=== PATIENT | male | born 1970 | race Caucasian/White ===

== ENCOUNTER 2023-09-24 11:34 | Emergency (ER) | payer OTHER ==
--- NOTE | 2023-09-24 13:10 | RAD REPORT ---
EXAM DESCRIPTION: CT - Spine Lumbar Wo Con - 09/24/2023 12:12 pm CLINICAL HISTORY: prior surgeries;Lower back pain;Radiculopathy COMPARISON: No comparisons TECHNIQUE: Axial noncontrast CT imaging of the lumbar spine was performed with coronal and sagittal re-formatted images. All CT scans are performed using dose optimization technique as appropriate and may include automated exposure control or mA/KV adjustment according to patient size. FINDINGS: No acute lumbar spine fracture seen. No aggressive marrow pattern or malalignment. Sequel ae of posterior approach fusion at L4-5, with sequelae of posterior decompression at the level. Inter body spacer at L5-S1 with L5 anterior fusion screw as well. Variable degrees of facet ankylosis at th ose levels Paraspinal tissues are normal in thickness. No paraspinal abscess or hematoma seen. Intervertebral disc disease assessment is inherently limited by CT. Within these limitations, no high -grade canal stenosis suspected. Mild degrees of bony neural foraminal narrowing due to facet and en dplate remodeling at L3-4, L4-5, and L5-S1, most pronounced at L5-S1 bilaterally. IMPRESSION: No acute fracture or subluxation. Sequelae of posterior decompression and fusion of the lower lumbar spine as above. Please consider MRI follow-up for assessment of disc disease if clinically desired.
[2023-09-24] MEDS ORDERED: HYDROCODONE/APAP 7.5/325 MG TAB ONE (14:08)
[2023-09-24] MEDS ORDERED: KETOROLAC 30 MG/ML INJ ONE (14:08)
[2023-09-24] MEDS ORDERED: dexAMETHasone 10 MG/ML VIAL ONE (14:08)
[2023-09-24] MEDS ORDERED: ONDANSETRON 4 MG (ODT) TAB ONE (14:49)
[2023-09-24] MEDS ORDERED: MORPHINE 4 MG/ML SYR ONE (14:50)
[2023-09-24] MEDS ORDERED: LIDOCAINE 4% PATCH ONE (14:50)
--- NOTE | 2023-09-24 15:22 | ER ---
Nurse's Notes [facility] Name: Cristhian Hanson Age: 53 yrs Sex: Male : 1970 Arrival Date: 09/24/2023 Time: 11:34 Bed 12 Private MD: Diagnosis: Strain of muscle, fascia and tendon of lower back Presentation: 09/23 11:55 Chief complaint: Patient states: low back pain x 4 days, hx of chronic back pain. jl7 Coronavirus screen: At this time, the client does not indicate any symptoms associated with coronavirus-19. Ebola Screen: No symptoms or risks identified at this time. Initial Sepsis Screen: Does the patient meet any 2 criteria? No. Patient's initial sepsis screen is negative. Does the patient have a suspected source of infection? No. Patient's initial sepsis screen is negative. Risk Assessment: Do you want to hurt yourself or someone else? Patient reports no desire to harm self or others. Onset of symptoms was September 20, 2023. 11:55 Method Of Arrival: Ambulatory jl7 11:55 Acuity: FREDIS 4 jl7 Triage Assessment: 11:56 General: Appears in no apparent distress. uncomfortable, Behavior is calm, cooperative, jl7 appropriate for age. Pain: Complains of pain in low back area Pain currently is 7 out of 10 on a pain scale. Musculoskeletal: Swelling absent. Historical: - Allergies: 11:56 Ciprofloxacin; jl7 - PMHx: 11:56 acid reflux; Hyperlipidemia; testicular cancer; back pain (testicular cancer); jl7 - Immunization history:: Adult Immunizations unknown. - Infectious Disease History:: Denies. - Social history:: Smoking status: Patient denies any tobacco usage or history of. Screenin:55 Abuse screen: Denies threats or abuse. Denies injuries from another. Nutritional jl7 screening: No deficits noted. Tuberculosis screening: No symptoms or risk factors identified. 14:42 [facility] ED Fall Risk Assessment (Adult) History of falling in the last 3 months, as6 including since admission No falls in past 3 months (0 pts) Confusion or Disorientation No (0 pts) Intoxicated or Sedated No (0 pts) Impaired Gait No (0 pts) Mobility Assist Device Used No (0 pt) Altered Elimination No (0 pt) Score/Fall Risk Level 0 - 2 = Low Risk Oriented to surroundings, Maintained a safe environment, Educated pt \T\ family on fall prevention, incl call for assistance when getting out of bed, Assessed \T\ reinforced patient's understanding of fall precautions. Assessment: 11:55 Reassessment: BAO Zelaya in triage assessing pt. jl7 14:56 General: Appears in no apparent distress. Behavior is calm, cooperative. Pain: as6 Complains of pain in lumbar area and low back area. Vital Signs: 11:55 BP 123 / 82; Pulse 73; Resp 17; Temp 97.9; Pulse Ox 99% ; Weight 97.52 kg; Height 5 ft. jl7 9 in. ; Pain 7/10; 14:55 BP 119 / 80; Pulse 64; Resp 18; Pulse Ox 100% ; as6 11:55 Body Mass Index 31.75 (97.52 kg, 175.26 cm) jl7 11:55 Pain Scale: Adult jl7 ED Course: 11:39 Patient arrived in ED. mr 11:40 Jennie Buenrostro PA-C is PHCP. sb4 11:40 Xu Jorgensen MD is Attending Physician. sb4 11:55 Patient has correct armband on for positive identification. jl7 11:56 Triage completed. jl7 11:56 Arm band placed on right wrist. Patient placed in waiting room, Patient notified of jl7 wait time. 12:11 CT Lumbar Spine Wo Con In Process Unspecified. EDMS 14:43 Provided Education on: follow up. as6 14:43 No provider procedures requiring assistance completed. Patient did not have IV access as6 during this emergency room visit. Administered Medications: 14:17 Drug: Dexamethasone IM 10 mg IM once Route: IM; Site: right deltoid; as6 14:40 Follow up: Response: No adverse reaction as6 14:17 Drug: Ketorolac IM 30 mg IM once Route: IM; Site: left deltoid; as6 14:40 Follow up: Response: No adverse reaction as6 14:17 Drug: Hydrocodone-Acetaminophen PO (7.5 mg-325 mg) 1 tabs PO once Route: PO; as6 14:39 Follow up: Response: No adverse reaction as6 14:55 Drug: Lidoderm Topical Patch 5 % (700 mg/patch) 1 patches Topical once; leave on for 12 as6 hours; cover most painful area; may cut into smaller pieces Route: Topical; Site: affected area; 14:55 Drug: morphine IM 4 mg IM once Route: IM; Site: right deltoid; as6 14:55 Drug: Ondansetron PO 4 mg PO once Route: PO; as6 16:12 Drug: Diazepam IM 10 mg IM once Route: IM; Site: left deltoid; hb Medication: 11:55 VIS not applicable for this client. jl7 Outcome: 14:43 Condition: stable as6 15:22 Discharge ordered by . sb4 16:28 Discharged to home ambulatory, with significant other, 16:28 Discharge instructions given to patient, significant other, Instructed on discharge instructions, follow up and referral plans. medication usage, Demonstrated understanding of instructions, follow-up care, medications, 16:29 Patient left the ED. hb Signatures: Dispatcher [employer] EDMT Arcelia De La Cruz, Reg Reg mr Yumiko Angela, RN RN Tushar Lopes RN RN [email or web address] Andrez Jimenez RN RN as6 Jennie Buenrostro, PASherrie PASherrie sb4
--- NOTE | 2023-09-24 15:22 | EDPHYS ---
Physician Documentation [facility] Name: Cristhian Hanson Age: 53 yrs Sex: Male : 1970 Arrival Date: 09/24/2023 Time: 11:34 Bed 12 Private MD: ED Physician Xu Jorgensen HPI: 09/23 12:00 This 53 yrs old Male presents to ER via Ambulatory with complaints of Back Pain. sb4 12:00 Patient reports low back pain that began about 4 days ago. Patient has extensive sb4 history of back problems. He has had 7 surgeries, the latest 3 years ago was a fusion in his lumbar. He states that his pain has been relatively controlled until a few days ago. He cannot think of any specific injury but he has not been able to sleep in multiple days due to the pain. He denies any bowel or bladder incontinence. Denies any saddle paresthesia. States that his legs feel weak but denies any numbness or tingling. Historical: - Allergies: 11:56 Ciprofloxacin; jl7 - PMHx: 11:56 acid reflux; Hyperlipidemia; testicular cancer; back pain (testicular cancer); jl7 - Immunization history:: Adult Immunizations unknown. - Infectious Disease History:: Denies. - Social history:: Smoking status: Patient denies any tobacco usage or history of. ROS: 12:00 Constitutional: Negative for fever, chills, and weight loss, sb4 12:00 Back: Positive for pain at rest, pain with movement, of the lumbar area, 12:00 All other systems are negative, Exam: 12:00 Head/Face: Normocephalic, atraumatic. Eyes: Extra-ocular motions intact. Periorbital sb4 areas with no swelling, redness, or edema. ENT: Mucous membranes moist. Skin: Warm, dry with normal turgor. Normal color with no rashes, no lesions, and no evidence of cellulitis. 12:00 Constitutional: The patient appears alert, awake, uncomfortable, 12:00 Back: pain, that is moderate, of the lumbar area, ROM is painful, normal spinal alignment noted, CVA tenderness, is absent, vertebral tenderness, is not appreciated, muscle spasm, is not present, 12:00 Neuro: Motor: moves all fours, Sensation: is normal, no obvious gross deficits, Gait: is steady, appropriate for age, Vital Signs: 11:55 BP 123 / 82; Pulse 73; Resp 17; Temp 97.9; Pulse Ox 99% ; Weight 97.52 kg; Height 5 ft. jl7 9 in. ; Pain 7/10; 14:55 BP 119 / 80; Pulse 64; Resp 18; Pulse Ox 100% ; as6 11:55 Body Mass Index 31.75 (97.52 kg, 175.26 cm) jl7 11:55 Pain Scale: Adult jl7 MDM: 11:43 Patient medically screened. sb4 14:43 Data reviewed: vital signs, nurses notes, radiologic studies, and as a result, I will sb4 discharge patient. Counseling: I had a detailed discussion with the patient and/or guardian regarding the historical points, exam findings, and any diagnostic results supporting the discharge/admit diagnosis, radiology results, to return to the emergency department if symptoms worsen or persist or if there are any questions or concerns that arise at home. 09/23 11:59 Order name: CT Lumbar Spine Wo Con; Complete Time: 13:11 sb4 Administered Medications: 14:17 Drug: Dexamethasone IM 10 mg IM once Route: IM; Site: right deltoid; as6 14:40 Follow up: Response: No adverse reaction as6 14:17 Drug: Ketorolac IM 30 mg IM once Route: IM; Site: left deltoid; as6 14:40 Follow up: Response: No adverse reaction as6 14:17 Drug: Hydrocodone-Acetaminophen PO (7.5 mg-325 mg) 1 tabs PO once Route: PO; as6 14:39 Follow up: Response: No adverse reaction as6 14:55 Drug: Lidoderm Topical Patch 5 % (700 mg/patch) 1 patches Topical once; leave on for 12 as6 hours; cover most painful area; may cut into smaller pieces Route: Topical; Site: affected area; 14:55 Drug: morphine IM 4 mg IM once Route: IM; Site: right deltoid; as6 14:55 Drug: Ondansetron PO 4 mg PO once Route: PO; as6 16:12 Drug: Diazepam IM 10 mg IM once Route: IM; Site: left deltoid; hb Disposition: 17:42 Co-signature as Attending Physician, Xu Jorgensen MD I reviewed the patient's care rt provided by the Advanced Practice Provider and agree with the diagnosis and treatment plan. Disposition Summary: 09/24/23 15:22 Discharge Ordered Notes: Location: Home sb4 Problem: an acute exacerbation sb4 Symptoms: have improved sb4 Condition: Stable sb4 Diagnosis - Strain of muscle, fascia and tendon of lower back sb4 Followup: sb4 - With: Private Physician - When: As needed - Reason: Recheck today's complaints, Re-evaluation by your physician Discharge Instructions: - Discharge Summary Sheet sb4 - Low Back Sprain or Strain Rehab sb4 Forms: - Patient Portal Instructions sb4 - Leadership Thank You Letter sb4 Prescriptions: - Cyclobenzaprine 10 mg Oral Tablet - take 1 tablet ORAL route every 8 hours As needed; 30 tablet; Refills: 0, sb4 Product Selection Permitted - Diclofenac Sodium 75 mg Oral Tablet Sustained Release - take 1 tablet ORAL route 2 times per day; 30 tablet; Refills: 0, Product sb4 Selection Permitted - Medrol (Jean) 4 mg Oral Tablets, Dose Pack - take 1 tablet ORAL route as directed - follow package instructions; 1 packet; sb4 Refills: 0, Product Selection Permitted Signatures: Dispatcher [employer] Yumiko Anthony, RN RN Tushar Lopes RN RN jl7 Andrez Jimenez RN RN as6 Jennie Buenrostro PA-C PASherrie sb4 Xu Jorgensen MD MD rt
[2023-09-24 22:51] VITALS: BP 119/80; TEMP 97.9; O2SAT 100
== END 2023-09-24 16:29 | disposition home or self-care (01) ==
LOC: ER 11:34
DX: S39.012A Strain of muscle, fascia and tendon of lower back, initial encounter (principal)
CPT/HCPCS: 72131; Q0162; J2001; J1100